=== PATIENT | female | born 1955 | race Caucasian/White ===

== ENCOUNTER 2018-04-07 12:13 | Inpatient (IN) | payer MEDICARE, MEDICAID, OTHER ==
[~2018-04-07] VITALS: Ht 157.5 cm; Wt 80.7 kg
[2018-04-07 12:50] LABS: BASOPHILS % (AUTO) 0.5 % (0.0-2.0); EOSINOPHILS % (AUTO) 3.3 % (0.0-6.0); HEMATOCRIT 25 % (33-45); HEMOGLOBIN 8.1 g/dL (11.5-14.8); LYMPHOCYTES # (AUTO) 1.4 /CMM (0.8-4.8); LYMPHOCYTES % (AUTO) 16.4 % (20.0-44.0); MEAN CORPUSCULAR HGB CONC 32 g/dl (31.0-36.0); MEAN CORPUSCULAR VOLUME 84 fL (82-100); MONOCYTES # (AUTO) 0.7 /CMM (0.1-1.30); MONOCYTES % (AUTO) 8.5 % (2.0-12.0); NEUTROPHILS # (AUTO) 6.2 /CMM (1.8-8.9); NEUTROPHILS % (AUTO) 71.3 % (43.0-81.0); PLATELET COUNT (AUTO) 130 /CMM (150-450); RED BLOOD CELL COUNT(AUTO) 2.97 MIL/uL (4.0-5.2); WHITE BLOOD COUNT (AUTO) 8.8 K/uL (4.3-11.0)
[2018-04-07 12:54] LABS: APPEARANCE,URINE Clear (CLEAR); BILIRUBIN,URINE Negative (NEGATIVE); BLOOD, URINE Trace-intact Ery/uL (NEGATIVE); COLOR,URINE Yellow (YELLOW); KETONES,URINE Negative (NEGATIVE); LEUKOCYTE ESTERASE ,URINE Negative (NEGATIVE); NITRITE, URINE Negative (NEGATIVE); PH,URINE 6.5 (5.0-8.0); PROTEIN,URINE Trace mg/dl (NEGATIVE); UGLUCOSE Negative (NEGATIVE); UROBILINOGEN,URINE 0.2 EU/dL (0.2)
[2018-04-07 13:00] LABS: BACTERIA,URINE Few /HPF (None Seen); SQUAMOUS EPITHELIAL CELL,UR Few /HPF (None Seen); WBC,URINE 0-2 /HPF (0-3)
[2018-04-07] MEDS ORDERED: LEVETIRACETAM (500MG) 1,000 MG in IV NS 0.9% 100 ML IV SCH (13:00)
[2018-04-07] MEDS ORDERED: ONDANSETRON HCL/PF 4 MG/2 ML VIAL IVP ONE (13:00)
[2018-04-07] MEDS ORDERED: IV NS 0.9% 1,000 ML BAG IV ONE (13:00)
[2018-04-07 13:01] LABS: CALCIUM, SERUM 8.3 mg/dL (8.5-10.1); CARBON DIOXIDE 18 mmol/L (21-32); CHLORIDE 107 mmol/L (98-107); CREATININE 1.7 mg/dL (0.6-1.3); GLUCOSE 188 mg/dL (74-106); POTASSIUM 3.2 mmol/L (3.5-5.1); SODIUM SERUM 141 mmol/L (136-145); UREA NITROGEN, BLOOD 14 mg/dL (7-18)
[2018-04-07] MEDS ORDERED: ONDANSETRON HCL/PF 4 MG/2 ML VIAL ONE (13:02)
--- NOTE | 2018-04-07 13:05 | NUR ---
OUT FOR HEAD CT
[2018-04-07 13:07] LABS: ALANINE AMINOTRANSFERASE 10 U/L (12-78); ALBUMIN 2.6 g/dL (3.4-5.0); ALKALINE PHOSPHATASE 129 U/L (46-116); ASPARTATE AMINOTRANSFERASE 15 U/L (15-37); BILIRUBIN,TOTAL 0.1 mg/dL (0.2-1.0); LIPASE 94 U/L (73-393); TOTAL PROTEIN, SERUM 7.8 g/dL (6.4-8.2)
--- NOTE | 2018-04-07 13:08 | NUR ---
CALLED NURSE SUP FOR DEVEN BED
--- NOTE | 2018-04-07 13:38 | NUR ---
PAGED ADMITTING HOSPITALIST VIA [facility]
--- NOTE | 2018-04-07 14:01 | NUR ---
DEVEN 104
[2018-04-07] MEDS ORDERED: Magnesium 1GM/D5W 100ML PREMIX 100 ML IV ONE (14:17)
[2018-04-07] MEDS: Magnesium 1GM/D5W 100ML PREMIX 100 ML IV SCH ×4 (14:23→17:00)
[2018-04-07] MEDS ORDERED: GABA-532 PO (14:25)
[2018-04-07] MEDS ORDERED: MAGN400O6 PO (14:25)
[2018-04-07] MEDS ORDERED: RISP1TAB27 PO (14:25)
[2018-04-07] MEDS ORDERED: ASPI-1169 PO (14:25)
[2018-04-07] MEDS ORDERED: SENN-168 PO (14:25)
[2018-04-07] MEDS ORDERED: HYDR-4384 PO (14:25)
[2018-04-07] MEDS ORDERED: ACET325T53 PO (14:25)
[2018-04-07] MEDS ORDERED: PANT40TA2 PO (14:25)
[2018-04-07] MEDS ORDERED: METO50TA16 PO (14:25)
[2018-04-07] MEDS ORDERED: ATOR80TA PO (14:25)
[2018-04-07] MEDS ORDERED: FERR325T23 PO (14:25)
[2018-04-07] MEDS ORDERED: INSU100V11 SQ (14:25)
[2018-04-07] MEDS ORDERED: QUET50TA PO (14:25)
[2018-04-07] MEDS ORDERED: CRANBERRY PO (14:25)
[2018-04-07] MEDS ORDERED: LEVO100T9 PO (14:25)
[2018-04-07] MEDS ORDERED: AMLO2.5T4 PO (14:25)
[2018-04-07] MEDS ORDERED: NA P133E RC (14:25)
[2018-04-07] MEDS ORDERED: BISA10SU61 RC (14:25)
[2018-04-07] MEDS ORDERED: CLOP75TA15 PO (14:25)
[2018-04-07] MEDS ORDERED: FOLI1TAB16 PO (14:25)
--- NOTE | 2018-04-07 14:48 | NUR ---
REPORT GIVEN TO JAMAICA LOPES FOR FELICITAS TELE 104-1
--- NOTE | 2018-04-07 15:30 | NUR ---
DEVEN RN NOTE RECEIVED PATIENT FROM ER WITH DX SEIZURE UNDER CARE CLARI RN EINSTEIN BROS BAGELS ASSISTANT MANAGER , PATIENT LETHARGIC BUT RESPONSE TO VERBAL AND TACITLY STIMULI, RT UPPER PICC LINE IN PLACE, UNABLE TO FLUSH I LUMEN , WITH العلي CATH TO GRAVITY WITH YELLOW COLOR URINE, PLACED ON PADDED SIDE RAILS FOR SEIZURE PRECAUTION, PLACED ON TELE MONITOR SR HR 75, VS TAKEN BED IN LOWEST AND LOCKED POSITION , WILL CONT TO MONITOR CLOSELY
[2018-04-07 16:00] VITALS: BP 116/78
[2018-04-07 16:27] VITALS: BP 116/78
[2018-04-07] MEDS ORDERED: IV NS 0.9% 1,000 ML IV PRN (17:25)
[2018-04-07] MEDS ORDERED: DEXTROSE 50%-WATER 50 ML DISP.SYRIN IV PRN (17:30)
[2018-04-07] MEDS ORDERED: TEMAZEPAM 15 MG CAPSULE PO PRN (17:30)
[2018-04-07] MEDS ORDERED: NA PHOS,M-B/NA PHOS,DI-BA 1 EA ENEMA RC PRN (17:30)
[2018-04-07] MEDS ORDERED: ONDANSETRON HCL/PF 4 MG/2 ML VIAL IVP PRN (17:30)
[2018-04-07] MEDS ORDERED: HYDROCODONE/APAP 5/325MG 1 EACH TABLET PO PRN (17:30)
--- NOTE | 2018-04-07 17:30 | NUR ---
DEVEN BERUMEN NNOTE BECOME VERY RESTLESS TRYING TO REMOVE ALL LINES AND GET OUT OFF BED , CALLED CLARI BERUMEN FISHERIES SPECIALIST OK TO PLACE SOFT RESTRAIN, CALLED TO FAMILY BUT WRONG NUMBER ,WILL F\U , SPOKE WITH CLARI TO PLACE ADMISSION ORDERS
[2018-04-07] MEDS: BLOOD SUGAR DIAGNOSTIC 1 EACH STRIP IN SCH ×2 (17:49→22:11)
[2018-04-07] MEDS: POTASSIUM CL. PREMIX PERIPHER. 50 ML IV SCH ×2 (17:52→18:52)
--- NOTE | 2018-04-07 17:55 | NUR ---
DEVEN RN NOTE PER REPORT MAG 1 GM WAS GIVEN IN ER
--- NOTE | 2018-04-07 18:27 | NUR ---
DEVEN RN NOTE REFUSED TO EAT ,WILL CONT TO ENCOURAGE TO EAT
[2018-04-07 20:00] VITALS: BP 149/84
[2018-04-07] MEDS: ACETAMINOPHEN 325 MG TABLET PO PRN (20:21)
--- NOTE | 2018-04-07 21:53 | NUR ---
CALL PHARMACIST GROUNDS SUPERVISOR , SPOKE TO YORDAN FROM PHARMACY, KEPPRA IV Q12HRS DOUBLE ORDER, PER PHARMACIST HE WILL D/C THE ORDER AT 0100 AM AND OK TO GIVE NOW DOSE DUE 2200.
--- NOTE | 2018-04-07 21:56 | NUR ---
SPOKE TO MARBELLA, SON, UPDATES ON MEDICAL CONDITION PROVIDED
[2018-04-07] MEDS ORDERED: LEVETIRACETAM (500MG) 500 MG in IV NS 0.9% 100 ML IV SCH (22:00)
[2018-04-07] MEDS: ATORVASTATIN 40 MG TABLET PO SCH (22:11)
[2018-04-07] MEDS: SENNOSIDES 8.6 MG TABLET PO SCH (22:11)
[2018-04-07 22:45] VITALS: BP 142/79
--- NOTE | 2018-04-07 22:45 | NUR ---
AT 22:36 PT NOTED WITH SEIZURE EPISODE 30 SECONDS LONG, MD AUGUSTIN MADE AWARE, NO PRN MEDS ORDERED , WITH NEW ORDER TO GIVE ATIVAN 2MG IVP Q4 HRS FOR SEIZURES> LONGER THEN 5 MIN. CHARGE NURSE MADE AWARE.
[2018-04-07] MEDS ORDERED: LORAZEPAM INJ 2 MG/ML VIAL IV PRN (23:00)
[2018-04-08] VITALS: BP 129/65
--- NOTE | 2018-04-08 02:45 | NUR ---
0245 DR ANDERSON WAS MADE AWARE OF PATIENT'S ANOTHER EPISODE OF LASTING LONGER THAN ONE MINUTE WITH ORDER TO GIVE ATIVAN 2MG IVP X ONE DOSE NOW. ORDER NOTED AND CARRIED OUT.
[2018-04-08] MEDS ORDERED: LORAZEPAM INJ 2 MG/ML VIAL IV ONE (03:00)
[2018-04-08 04:00] VITALS: BP 103/48
--- NOTE | 2018-04-08 04:00 | NUR ---
PT REMAINS CALM, BILATERAL WRIST RESTRAINTS RELEASED, WILL CONTINUE TO MONITOR
--- NOTE | 2018-04-08 04:10 | NUR ---
ON 04:08 AM PT WAS NOTED WITH 3RD EPISODE OF SEIZURE TONIGHT. SEIZURE LASTED 30 SECONDS. CHARGE NURSE AWARE.
--- NOTE | 2018-04-08 06:06 | NUR ---
PT REMAINS CALM, BILATERAL SOFT WRIST RESTRAINTS COMPLETE. WILL CONTINUE TO MONITOR
[2018-04-08 06:46] LABS: BASOPHILS # (AUTO) 0.1 /CMM (0.0-0.2); BASOPHILS % (AUTO) 0.9 % (0.0-2.0); EOSINOPHILS % (AUTO) 2.8 % (0.0-6.0); HEMATOCRIT 23 % (33-45); HEMOGLOBIN 7.6 g/dL (11.5-14.8); LYMPHOCYTES # (AUTO) 1.1 /CMM (0.8-4.8); LYMPHOCYTES % (AUTO) 13.2 % (20.0-44.0); MEAN CORPUSCULAR HGB CONC 33 g/dl (31.0-36.0); MEAN CORPUSCULAR VOLUME 82 fL (82-100); MONOCYTES # (AUTO) 0.9 /CMM (0.1-1.30); MONOCYTES % (AUTO) 10.1 % (2.0-12.0); NEUTROPHILS # (AUTO) 6.2 /CMM (1.8-8.9); PLATELET COUNT (AUTO) 132 /CMM (150-450); WHITE BLOOD COUNT (AUTO) 8.5 K/uL (4.3-11.0)
--- NOTE | 2018-04-08 07:00 | NUR ---
RN DEVEN OPENING NOTES RECEIVED BEDSIDE REPORT PATIENT IN BED LETHARGIC AROUSED BY STIMULI NO SIGNS OR SYMPTOMS OF RESPIRATORY DISTRESS ON 4 LTRS NASAL CANNULA SATURATING 100% NO SIGNS OR SYMPTOMS OF ACUTE PAIN . SEIZURE PRECAUTIONS IN PLACE. العلي CATH DRAINING CLEAR YELLOW URINE (L) UA PICC RUNNING NS @ 75ML/HR. SUTURES TO (R) FINGERS CLEAN WITH NO S/S OF WARMTH OR REDNESS NOTED. ALL NEEDS MET CALL LIGHT WITHIN REACH
[2018-04-08 07:08] LABS: CALCIUM, SERUM 8.1 mg/dL (8.5-10.1); CREATININE 1.4 mg/dL (0.6-1.3); MAGNESIUM 1.4 mg/dL (1.8-2.4); PHOSPHORUS 2.3 mg/dL (2.5-4.9)
[2018-04-08 07:12] LABS: POTASSIUM 2.5 mmol/L (3.5-5.1)
[2018-04-08] MEDS ORDERED: PANTOPRAZOLE 40 MG TABLET.DR PO SCH (07:30)
[2018-04-08] MEDS ORDERED: Magnesium 1GM/D5W 100ML PREMIX PIGGYBACK IV ONE (07:30)
[2018-04-08] MEDS: LEVOTHYROXINE SODIUM 100 MCG TABLET PO SCH (07:30)
--- NOTE | 2018-04-08 07:33 | NUR ---
SPOKE TO CLARI GUTIERREZ REGARDING MORNING LAB RESULTS, MAG LEVEL, NA LEVEL , PHOS LEVEL, POTASSIUM LEVEL AND UPDATED ABOUT SEIZURE ACTIVITIES DURING THE NIGHT. CLARI WITH NEW ORDERS MADE AND CARRIED OUT.
--- NOTE | 2018-04-08 07:43 | NUR ---
RN DEVEN NOTES NEW ORDERS OBTAINED IN REGARDS TO POTASSIUM OF 2.5 AND SEIZURE ACTIVITY THROUGHOUT THE NIGHT
[2018-04-08 08:00] VITALS: BP_SYST 100; BP_SYST 153; BP_DIAS 74
[2018-04-08] MEDS ORDERED: LEVETIRACETAM (500MG) 1,000 MG in IV NS 0.9% 100 ML IV SCH (08:00)
[2018-04-08] MEDS: IV D5/0.45 NACL 1,000 ML IV PRN (08:06)
[2018-04-08] MEDS: BLOOD SUGAR DIAGNOSTIC 1 EACH STRIP IN SCH ×4 (08:20→22:25)
[2018-04-08] MEDS: POTASSIUM CL. PREMIX PERIPHER. 50 ML IV SCH ×8 (08:21→15:58)
[2018-04-08] MEDS: Magnesium 1GM/D5W 100ML PREMIX 100 ML IV SCH ×4 (08:21→11:28)
[2018-04-08] MEDS: METOPROLOL TARTRATE 50 MG TABLET PO SCH ×3 (09:00→17:00)
[2018-04-08] MEDS: AMLODIPINE BESYLATE 2.5 MG TABLET PO SCH ×2 (09:00→17:00)
[2018-04-08] MEDS: ASPIRIN 81 MG TAB.CHEW PO SCH (09:00)
[2018-04-08] MEDS: QUETIAPINE FUMARATE 25 MG TABLET PO SCH ×2 (09:00→17:00)
[2018-04-08] MEDS: risperiDONE 1 MG TABLET PO SCH (09:00)
[2018-04-08] MEDS: FOLIC ACID 1 MG TABLET PO SCH (09:00)
[2018-04-08] MEDS: CLOPIDOGREL BISULFATE 75 MG TABLET PO SCH (09:00)
[2018-04-08] MEDS: GABAPENTIN 100 MG CAPSULE PO SCH ×3 (09:00→17:00)
[2018-04-08] MEDS: FERROUS SULFATE (325 MG) 325 MG/TAB TABLET PO SCH ×2 (09:00→17:00)
[2018-04-08] MEDS: Z GUARD REMEDY 2 OZ OINT TP SCH (09:10)
[2018-04-08] MEDS: PANTOPRAZOLE 40 MG VIAL IV SCH (09:12)
--- NOTE | 2018-04-08 09:30 | NUR ---
RN DEVEN NOTES ATTEMPTED TO START 2ND IV LINE D/T ONE PORT ON PICC CLOGGED. WILL NOTIFY MD IF ATEPLASE CAN BE ORDERED
[2018-04-08] MEDS: POTASSIUM PHOSPHATE MM 7.5 MMOL in IV D5W 100 ML IV SCH ×2 (10:35→13:26)
[2018-04-08 12:00] VITALS: BP 119/61
[2018-04-08] MEDS ORDERED: ALTEPLASE CATHFLO 2 MG/VIAL XX ONE (12:30)
--- NOTE | 2018-04-08 12:30 | NUR ---
RN DEVEN NOTES ALTEPLASE ORDERED AND ADMINISTER TO PICC
--- NOTE | 2018-04-08 13:30 | NUR ---
RN DEVEN NOTES PICC LINE FLUSHES WITH NO RESISTANCE
[2018-04-08 16:00] VITALS: BP 135/72
--- NOTE | 2018-04-08 18:45 | NUR ---
RN DEVEN NOTES PATIENT LETHARGIC THROUGHOUT THE DAY.A/O X1 CONFUSED. ABLE TO AROUSE WITH TOUCH. NO SIGNS OR SYMPTOMS OF RESPIRATORY DISTRESS ON 2 LTRS VIA NASAL CANNULA. NO COMPLAINTS OF ACUTE PAIN. VERY AGGRESSIVE WHEN CLEANING KICKING AND YELLING CURSIVE LANGUAGE. FALLS BACK TO SLEEP SHOUTING AT TIMES FOR ENOCH. TREATMENT TO (R) HAND/FINGERS IODINE AND KERLIX WRAP. NPO TILL COMPLETELY AWAKE AND ALERT. SEIZURE PRECAUTIONS IN PLACE BED IN LOW POSITION CALL LIGHT WITHIN REACH WILL ENDORSE TO NOC
[2018-04-08 20:00] VITALS: BP 149/54
[2018-04-08] MEDS ORDERED: OXCARBAZEPINE 150 MG TABLET PO SCH (21:00)
[2018-04-08] MEDS: SENNOSIDES 8.6 MG TABLET PO SCH (21:22)
[2018-04-08] MEDS: ATORVASTATIN 40 MG TABLET PO SCH (21:22)
--- NOTE | 2018-04-08 21:23 | NUR ---
PT COMBATIVE, KICKING, YELLING, REFUSING PO MEDICATIONS, UNABLE TO GIVE PO MEDS FOR SEIZURE, PT STATED SHE DOESNT NEED IT. NEURO MD MCINTYRE PAGED AND LEFT VOICEMAIL. CHARGE NURSE AWARE.
--- NOTE | 2018-04-08 21:40 | NUR ---
MD MCINTYRE CALLED BACK , EXPLAINED I WAS UNABLE TO GIVE PO ANTISEIZURE MEDICATIONS, REFUSED TO GIVE ORDERS, STATED CALLED PRIMARY CARE PHYSICIAN TO GET ORDERS. CHARGE NURSE AWARE.
--- NOTE | 2018-04-08 21:45 | NUR ---
SPOKE TO MD JODIE AUGUSTIN, AWARE OF PT'S REFUSING PO MEDICATIONS, WITH ORDER TO CHANGE ANTISEIZURE MEDICATION BACK TO PREVIOUS KEPPRA IV ORDER. CHARGE NURSE AWARE.
[2018-04-08] MEDS ORDERED: LEVETIRACETAM (500MG) 500 MG/5 ML VIAL IV ONE (22:21)
[2018-04-08] MEDS: LEVETIRACETAM (500MG) 1,000 MG in IV NS 0.9% 100 ML IV SCH (22:44)
[2018-04-09] VITALS (8 sets, daily range): BP systolic 121–148; BP diastolic 65–80
[2018-04-09] MEDS: LORAZEPAM INJ 2 MG/ML VIAL IV PRN ×3 (02:54→08:40)
--- NOTE | 2018-04-09 03:00 | NUR ---
PT NOTED @ 0250 WITH EPISODE OF SEIZURE 1 MINUTE LONG , ATIVAN 1MG IVP ADMIT ORDERED.
[2018-04-09] MEDS: IV D5/0.45 NACL 1,000 ML IV PRN ×2 (03:11→20:11)
--- NOTE | 2018-04-09 04:07 | NUR ---
PT NOTED WITH ANOTHER SEIZURE EPISODE 45 SECONDS LONG, ATIVAN ADMIN ORDERED.
[2018-04-09 06:22] LABS: BASOPHILS # (AUTO) 0.1 /CMM (0.0-0.2); BASOPHILS % (AUTO) 0.9 % (0.0-2.0); EOSINOPHILS % (AUTO) 4.3 % (0.0-6.0); HEMATOCRIT 24 % (33-45); LYMPHOCYTES # (AUTO) 1.4 /CMM (0.8-4.8); LYMPHOCYTES % (AUTO) 11.6 % (20.0-44.0); MEAN CORPUSCULAR HGB CONC 33 g/dl (31.0-36.0); MEAN CORPUSCULAR VOLUME 81 fL (82-100); MONOCYTES # (AUTO) 0.9 /CMM (0.1-1.30); MONOCYTES % (AUTO) 7.2 % (2.0-12.0); PLATELET COUNT (AUTO) 175 /CMM (150-450); RED BLOOD CELL COUNT(AUTO) 2.97 MIL/uL (4.0-5.2); WHITE BLOOD COUNT (AUTO) 11.9 K/uL (4.3-11.0)
[2018-04-09 06:29] LABS: CALCIUM, SERUM 7.9 mg/dL (8.5-10.1); CREATININE 1.2 mg/dL (0.6-1.3); PHOSPHORUS 2.2 mg/dL (2.5-4.9)
[2018-04-09 06:32] LABS: POTASSIUM 2.6 mmol/L (3.5-5.1)
--- NOTE | 2018-04-09 07:00 | NUR ---
RN DEVEN OPENING NOTES RECEIVED BEDSIDE REPORT PATIENT IN BED LETHARGIC AROUSED BY STIMULI NO SIGNS OR SYMPTOMS OF RESPIRATORY DISTRESS ON 4 LTRS NASAL CANNULA SATURATING 100% NO SIGNS OR SYMPTOMS OF ACUTE PAIN .SINUS RHYTHM 82 ON MONITOR SEIZURE PRECAUTIONS IN PLACE. العلي CATH DRAINING CLEAR YELLOW URINE (L) UA PICC RUNNING D51/2 NS@100ML/HR SUTURES TO (R) FINGERS CLEAN WITH NO S/S OF WARMTH OR REDNESS NOTED.SAFETY PRECAUTIONS IN PLACE BED IN LOW POSITION CALL LIGHT WITHIN REACH
--- NOTE | 2018-04-09 07:00 | NUR ---
RN DEVEN NOTES PATIENT LETHARGIC THROUGHOUT THE DAY.A/O X1 CONFUSED. ABLE TO AROUSE WITH TOUCH.MORE AGGRESSIVE AT END OF SHIFT.HALLUCINATIONS OF HER SON AND EATING AT [employer] NO SIGNS OR SYMPTOMS OF RESPIRATORY DISTRESS ON 4LTRS VIA NASAL CANNULA. NO COMPLAINTS OF ACUTE PAIN. VERY AGGRESSIVE WHEN CLEANING KICKING AND YELLING CURSIVE LANGUAGE. FALLS BACK TO SLEEP SHOUTING AT TIMES FOR ENOCH. TREATMENT TO (R) HAND/FINGERS IODINE AND KERLIX WRAP.ORDER FOR NG TUBE IF PATIENT UNABLE TO WAKE FOR MEDICATION.ALL EVENING MEDS GIVEN 1X EPISODE OF SEIZURE PRIMARY AWARE ENDORSED ALL ORDERS TO NOC . SEIZURE PRECAUTIONS IN PLACE BED IN LOW POSITION CALL LIGHT WITHIN REACH WILL ENDORSE TO NOC
[2018-04-09] MEDS: BLOOD SUGAR DIAGNOSTIC 1 EACH STRIP IN SCH ×4 (08:17→21:19)
--- NOTE | 2018-04-09 08:40 | NUR ---
RN DEVEN NOTES PATIENT EXPERIENCED SEIZURE UNRESPONSIVE EYES DEVIATED UPWARD HR 140-150'S ATIVAN GIVEN ORDERED HR RESUMED TO THE 70'S
[2018-04-09] MEDS: LEVOTHYROXINE SODIUM 100 MCG TABLET PO SCH (08:51)
[2018-04-09] MEDS: METOPROLOL TARTRATE 50 MG TABLET PO SCH ×3 (08:52→16:54)
[2018-04-09] MEDS: FERROUS SULFATE (325 MG) 325 MG/TAB TABLET PO SCH ×2 (08:52→16:54)
[2018-04-09] MEDS: ASPIRIN 81 MG TAB.CHEW PO SCH (08:52)
[2018-04-09] MEDS: FOLIC ACID 1 MG TABLET PO SCH (08:52)
[2018-04-09] MEDS: GABAPENTIN 100 MG CAPSULE PO SCH ×3 (08:53→16:54)
[2018-04-09] MEDS: CLOPIDOGREL BISULFATE 75 MG TABLET PO SCH (08:53)
[2018-04-09] MEDS: risperiDONE 1 MG TABLET PO SCH (08:53)
[2018-04-09] MEDS: AMLODIPINE BESYLATE 2.5 MG TABLET PO SCH ×2 (08:53→17:13)
[2018-04-09] MEDS: QUETIAPINE FUMARATE 25 MG TABLET PO SCH ×2 (08:54→16:54)
[2018-04-09] MEDS: PANTOPRAZOLE 40 MG VIAL IV SCH (09:21)
[2018-04-09] MEDS: POTASSIUM CL. PREMIX PERIPHER. 50 ML IV SCH ×8 (09:21→16:09)
[2018-04-09] MEDS: Z GUARD REMEDY 2 OZ OINT TP SCH (09:22)
[2018-04-09] MEDS: POTASSIUM PHOSPHATE MM 7.5 MMOL in IV D5W 100 ML IV SCH ×2 (10:15→13:16)
[2018-04-09] MEDS: LEVETIRACETAM (500MG) 1,000 MG in IV NS 0.9% 100 ML IV SCH (10:21)
[2018-04-09 12:49] LABS: CREATININE, URINE 51.3 MG/DL (30.0-125.0); URINE TOTAL PROTEIN 29.3 mg/dL (0-11.9)
[2018-04-09 13:05] LABS: APPEARANCE,URINE CLEAR (CLEAR); BILIRUBIN,URINE NEGATIVE (NEGATIVE); BLOOD, URINE TRACE-INTA Ery/uL (NEGATIVE); COLOR,URINE YELLOW (YELLOW); KETONES,URINE NEGATIVE (NEGATIVE); LEUKOCYTE ESTERASE ,URINE NEGATIVE (NEGATIVE); NITRITE, URINE NEGATIVE (NEGATIVE); PROTEIN,URINE NEGATIVE (NEGATIVE); UGLUCOSE NEGATIVE (NEGATIVE); UROBILINOGEN,URINE 0.2 EU/dL (0.2)
[2018-04-09 13:24] LABS: BACTERIA,URINE Few /HPF (None Seen); SQUAMOUS EPITHELIAL CELL,UR 0-2 /HPF (None Seen)
[2018-04-09 13:51] LABS: EOSINOPHIL,URINE None Seen
[2018-04-09] MEDS ORDERED: PIPERACILLIN /TAZOBACTAM 3.375 G in IV D5W 50 ML IV ONE (14:30)
[2018-04-09] MEDS: OXCARBAZEPINE 150 MG TABLET PO SCH (16:54)
--- NOTE | 2018-04-09 20:00 | NUR ---
RN INITIAL NOTES RECEIVED PT IN BEDSIDE, NO SIGNS OR SYMPTOMS OF RESPIRATORY DISTRESS,ON 4 L NASAL CANNULA SATURATING 100% NO SIGNS OR SYMPTOMS OF ACUTE PAIN. SINUS RHYTHM 82 ON MONITOR SEIZURE PRECAUTIONS IN PLACE. العلي CATH DRAINING CLEAR YELLOW URINE, (L) UA PICC RUNNING D51/2 NS@100ML/HR SUTURES TO (R) FINGERS CLEAN WITH NO S/S OF WARMTH OR REDNESS NOTED.SAFETY PRECAUTIONS IN PLACE BED IN LOW LOCKED POSITION, CALL LIGHT WITHIN REACH.
[2018-04-09] MEDS: PIPERACILLIN /TAZOBACTAM 3.375 G in IV D5W 100 ML IV SCH (20:02)
[2018-04-09] MEDS: ATORVASTATIN 40 MG TABLET PO SCH (21:18)
[2018-04-09] MEDS: SENNOSIDES 8.6 MG TABLET PO SCH (21:18)
[2018-04-10] VITALS: BP 143/83
[2018-04-10] MEDS: PIPERACILLIN /TAZOBACTAM 3.375 G in IV D5W 100 ML IV SCH (03:38)
[2018-04-10 04:00] VITALS: BP 139/83
[2018-04-10 06:25] LABS: BASOPHILS # (AUTO) 0.1 /CMM (0.0-0.2); BASOPHILS % (AUTO) 0.5 % (0.0-2.0); EOSINOPHILS % (AUTO) 5.7 % (0.0-6.0); HEMATOCRIT 24 % (33-45); HEMOGLOBIN 8.1 g/dL (11.5-14.8); LYMPHOCYTES % (AUTO) 18.6 % (20.0-44.0); MEAN CORPUSCULAR HGB CONC 34 g/dl (31.0-36.0); MEAN CORPUSCULAR VOLUME 82 fL (82-100); MONOCYTES # (AUTO) 0.9 /CMM (0.1-1.30); MONOCYTES % (AUTO) 8.6 % (2.0-12.0); NEUTROPHILS # (AUTO) 7.3 /CMM (1.8-8.9); NEUTROPHILS % (AUTO) 66.6 % (43.0-81.0); PLATELET COUNT (AUTO) 206 /CMM (150-450); RED BLOOD CELL COUNT(AUTO) 2.97 MIL/uL (4.0-5.2); WHITE BLOOD COUNT (AUTO) 10.9 K/uL (4.3-11.0)
[2018-04-10 06:31] LABS: ALBUMIN 2.4 g/dL (3.4-5.0); BILIRUBIN,TOTAL 0.4 mg/dL (0.2-1.0); CREATININE 1.2 mg/dL (0.6-1.3); MAGNESIUM 1.4 mg/dL (1.8-2.4); POTASSIUM 3.1 mmol/L (3.5-5.1); TOTAL PROTEIN, SERUM 7.5 g/dL (6.4-8.2)
--- NOTE | 2018-04-10 06:36 | NUR ---
RN CLOSING NOTES NO CHANGE IN PTS CONDITION OVER SHIFT, PT REMAINS STABLE. WILL ENDORSE TO AM RN
[2018-04-10 06:42] LABS: THYROID STIMULATING HORMONE 1.223 uIU/mL (0.358-3.74)
[2018-04-10 07:02] LABS: OCCULT BLOOD STOOL NEGATIVE (NEGATIVE)
--- NOTE | 2018-04-10 07:30 | NUR ---
RN NOTES RECEIVED PT IN BED ASLEEP, NO S/S OF RESPIRATORY DISTRESS NOTED,WITH NASAL CANNULA WITH 4LPM OF OXYGEN, SATURATING 100%, NO INDICATION OF PAIN OF ACUTE PAIN. SINUS RHYTHM ON THE MONITOR HR AT 85. IV LINE ON THE VITALY WITH INFUSING D5NS AT 100CC/HR, العلي CATH DRAINING WELL TO CLEAR YELLOW URINE, SUTURES TO (R) FINGERS CLEAN WITH NO S/S OF INFECTION NOTED. PATIENT ON SEIZURE MONITORING. SEIZURE PRECAUTIONS IN PLACE. SAFETY MEASURES OBSERVED AND KEPT IN PLACE. BED IN LOW LOCKED POSITION, CALL LIGHT WITHIN REACH, WILL CONTINUE TO MONITOR PATIENT
--- NOTE | 2018-04-10 07:36 | NUR ---
RN AM SHIFT NOTE RECEIVED PATIENT FROM SPRINKLER FITTER, ASLEEP, VITALS REPORTED WNL, MONITOR FOR SEIZURE, NPO, SEIZURE PRECAUTIONS IN PLACE.
[2018-04-10 08:00] VITALS: BP 117/74
--- NOTE | 2018-04-10 08:00 | NUR ---
RN NOTE BLOOD SUGAR CHECKED PATIENTS CLOOD SUGAR AT 07:45 87MMHG NO COVERAGE REQUIRED.
[2018-04-10] MEDS: FOLIC ACID 1 MG TABLET PO SCH (08:20)
[2018-04-10] MEDS: CLOPIDOGREL BISULFATE 75 MG TABLET PO SCH (08:20)
[2018-04-10] MEDS: FERROUS SULFATE (325 MG) 325 MG/TAB TABLET PO SCH ×2 (08:21→16:29)
[2018-04-10] MEDS: ASPIRIN 81 MG TAB.CHEW PO SCH (08:21)
[2018-04-10] MEDS: GABAPENTIN 100 MG CAPSULE PO SCH ×3 (08:21→16:29)
[2018-04-10] MEDS: risperiDONE 1 MG TABLET PO SCH (08:21)
[2018-04-10] MEDS: ACETAMINOPHEN 325 MG TABLET PO PRN (08:21)
[2018-04-10] MEDS: METOPROLOL TARTRATE 50 MG TABLET PO SCH ×3 (08:22→16:28)
[2018-04-10] MEDS: QUETIAPINE FUMARATE 25 MG TABLET PO SCH ×2 (08:22→16:28)
[2018-04-10] MEDS: PANTOPRAZOLE 40 MG VIAL IV SCH (08:22)
[2018-04-10] MEDS: OXCARBAZEPINE 150 MG TABLET PO SCH ×2 (08:23→16:29)
[2018-04-10] MEDS: LEVOTHYROXINE SODIUM 100 MCG TABLET PO SCH (08:23)
[2018-04-10] MEDS: BLOOD SUGAR DIAGNOSTIC 1 EACH STRIP IN SCH ×4 (08:38→21:35)
[2018-04-10] MEDS: AMLODIPINE BESYLATE 2.5 MG TABLET PO SCH ×2 (08:39→16:47)
[2018-04-10] MEDS: Z GUARD REMEDY 2 OZ OINT TP SCH (08:40)
[2018-04-10] MEDS: Magnesium 1GM/D5W 100ML PREMIX 100 ML IV SCH ×4 (11:16→15:27)
[2018-04-10] MEDS: POTASSIUM CL. PREMIX PERIPHER. 50 ML IV SCH ×4 (11:23→15:48)
[2018-04-10 12:00] VITALS: BP 127/67
[2018-04-10] MEDS: INSULIN REGULAR, HUMAN 100 UNIT/ML 3 ML VIAL SQ PRN (12:08)
[2018-04-10 16:00] VITALS: BP 105/62
--- NOTE | 2018-04-10 19:12 | NUR ---
RN CLOSING NOTE PATIENT ALERT TO PERSON, VITALS WNL, D/C NASAL CANNULA, GAVE POTASSIUM IV AND MAGNESIUM IV PER MD ORDERS DUE TO LOW LAB VALUES, NO SEIZURE ON THIS SHIFT, SEIZURE PRECAUTIONS IN PLACE, D/C QUALITY ENGINEERING MANAGER, ACCUCHECK DONE CURRENT 122 AT 1600. DRESSING CHANGED RIGHT HAND, CLEANED WITH BETADINE AND WRAPED WITH KRILEX, NO REPORTS OF PAIN AT THIS TIME. العلي PATENT PATINET CLEAN AND DRY ,ENDORSED TO PM NURSE
[2018-04-10 20:00] VITALS: BP 158/93
--- NOTE | 2018-04-10 20:00 | NUR ---
RN INITIAL NOTES RECEIVED PT IN BED AWAKE, NO S/S OF RESPIRATORY DISTRESS NOTED,WITH NASAL CANNULA WITH 4LPM OF OXYGEN, SATURATING 100%, IV LINE ON THE VITALY WITH INFUSING D5NS AT 100CC/HR, العلي CATH DRAINING WELL TO CLEAR YELLOW URINE, SUTURES TO (R) FINGERS CLEAN WITH NO S/S OF INFECTION NOTED. PATIENT ON SEIZURE MONITORING. SEIZURE PRECAUTIONS IN PLACE. ALL SAFETY MEASURES OBSERVED AND KEPT IN PLACE. BED IN LOW LOCKED POSITION, CALL LIGHT WITHIN REACH, WILL CONTINUE TO MONITOR PATIENT.
[2018-04-10] MEDS: ATORVASTATIN 40 MG TABLET PO SCH (21:33)
[2018-04-10] MEDS: SENNOSIDES 8.6 MG TABLET PO SCH (21:34)
[2018-04-10] MEDS: IV D5/0.45 NACL 1,000 ML IV PRN (21:41)
[2018-04-11 04:00] VITALS: BP 140/97
--- NOTE | 2018-04-11 06:28 | NUR ---
RN CLOSING NOTES NO CHANGE IN PTS CONDITION OVERNIGHT. WILL ENDORSE TO AM RN
[2018-04-11 06:52] LABS: CALCIUM, SERUM 8.3 mg/dL (8.5-10.1); CREATININE 1.1 mg/dL (0.6-1.3); MAGNESIUM 1.8 mg/dL (1.8-2.4); POTASSIUM 3.3 mmol/L (3.5-5.1)
--- NOTE | 2018-04-11 07:10 | NUR ---
MS RN OPENING NOTES RECEIVED PT LYING ON BED.ALERT/ORIENTED X1-2 WITH CONFUSED.ON ROOM AIR,TOLERATING WELL.NO SOB AND ACUTE DISTRESS NOTED.NO SEIZURE NOTED.PICC LINE IS ON LEFT UA,SITE IS CLEAN DRY AND INTACT.NO INFILTRATION NOTED.SAFETY IS MAINTAINED AT ALL TIMES.BED IS IN LOW POSITION AND LOCKED.CALL LIGHT IS WITHIN REACH.WILL CONTINUE TO MONITOR THE PT CLOSELY AND MONITOR FOR SEIZURE SYMPTOMS.
[2018-04-11 08:00] VITALS: BP 171/82
[2018-04-11] MEDS: BLOOD SUGAR DIAGNOSTIC 1 EACH STRIP IN SCH ×2 (08:10→12:10)
[2018-04-11] MEDS: FERROUS SULFATE (325 MG) 325 MG/TAB TABLET PO SCH (08:43)
[2018-04-11] MEDS: LEVOTHYROXINE SODIUM 100 MCG TABLET PO SCH (08:43)
[2018-04-11] MEDS: risperiDONE 1 MG TABLET PO SCH (08:43)
[2018-04-11] MEDS: ASPIRIN 81 MG TAB.CHEW PO SCH (08:43)
[2018-04-11] MEDS: FOLIC ACID 1 MG TABLET PO SCH (08:43)
[2018-04-11] MEDS: CLOPIDOGREL BISULFATE 75 MG TABLET PO SCH (08:43)
[2018-04-11] MEDS: GABAPENTIN 100 MG CAPSULE PO SCH ×2 (08:43→12:11)
[2018-04-11] MEDS: AMLODIPINE BESYLATE 2.5 MG TABLET PO SCH (08:44)
[2018-04-11] MEDS: OXCARBAZEPINE 150 MG TABLET PO SCH (08:44)
[2018-04-11] MEDS: QUETIAPINE FUMARATE 25 MG TABLET PO SCH (08:44)
[2018-04-11] MEDS: METOPROLOL TARTRATE 50 MG TABLET PO SCH ×2 (08:44→12:15)
[2018-04-11] MEDS: PANTOPRAZOLE 40 MG VIAL IV SCH (08:44)
[2018-04-11] MEDS: Z GUARD REMEDY 2 OZ OINT TP SCH (08:45)
[2018-04-11] MEDS: IV D5/0.45 NACL 1,000 ML IV PRN (08:48)
[2018-04-11] MEDS ORDERED: POTASSIUM CHLORIDE 20 MEQ TAB.PRT.SR PO SCH (11:00)
[2018-04-11 12:15] VITALS: BP 146/84
[2018-04-11] MEDS: INSULIN REGULAR, HUMAN 100 UNIT/ML 3 ML VIAL SQ PRN (12:19)
[2018-04-11] MEDS: LORAZEPAM INJ 2 MG/ML VIAL IV PRN (12:22)
--- NOTE | 2018-04-11 13:25 | NUR ---
MS WET WASHER MACHINE NOTES PT IS READY TO DISCHARGE TO [facility].ALERT/ORIENTED X1 WITH CONFUSION.ALL THE DISCHARGE MEDICATION LIST AND TREATMENTS WELL EXPLAINED TO STAFF IN SNF AND AMBULANCE PERSONNEL.PICC LINE ON LEFT UA IS REMOVED.NO BLEEDING NOTED.PRESSURE DRESSING HAS DONE.SKIN ASSESSMENT IS DONE AND HAS TAKEN THE PICTURE.PT IS CLEAN AND DRY.FC IS IN PLACE.VITAL SIGNS ARE CHECKED AND RECORDED AND ALL THE MEDICATIONS ARE GIVEN.NO SEIZURE NOTED .REPORT GIVEN TO JAMAICA FRENCH IN SNF.NO COMPLICATIONS NOTED.
[2018-04-13 07:07] LABS: *SPE A/G RATIO 0.7 (0.7-1.7); *SPE ALBUMIN 2.9 g/dL (2.9-4.4); *SPE ALPHA-1-GLOBULIN 0.3 g/dL (0.0-0.4); *SPE ALPHA-2-GLOBULIN 0.7 g/dL (0.4-1.0); *SPE BETA GLOBULIN 0.7 g/dL (0.7-1.3); *SPE GLOBULIN, TOTAL 3.9 g/dL (2.2-3.9); *SPE M-SPIKE 1.9 g/dL (Not Observed); *SPEGAMMA GLOBULIN 2.2 g/dL (0.4-1.8)
== END 2018-04-11 13:25 | DRG 100 ==
LOC: ER 12:15 → EDBD 14:13 → TELE-TD 14:13 → MEDSG1 04-10 10:28
PROVIDERS: ADMIT Nurse Practitioner Acute Care; ATTEND Nurse Practitioner Acute Care
PROC: 02HV33Z Insertion of Infusion Device into Superior Vena Cava, Percutaneous Approach (ICD-10-PCS; principal; 2018-04-08)
PROC: B548ZZA Ultrasonography of Superior Vena Cava, Guidance (ICD-10-PCS; 2018-04-08)
DX: G40.909 Epilepsy, unspecified, not intractable, without status epilepticus (principal); N17.0 Acute kidney failure with tubular necrosis; G93.41 Metabolic encephalopathy; E44.0 Moderate protein-calorie malnutrition; E78.5 Hyperlipidemia, unspecified; E11.9 Type 2 diabetes mellitus without complications; E87.6 Hypokalemia; Z91.19 Patient's noncompliance with other medical treatment and regimen; Z86.73 Personal history of transient ischemic attack (TIA), and cerebral infarction without residual deficits; M62.49 Contracture of muscle, multiple sites; K21.9 Gastro-esophageal reflux disease without esophagitis; F32.9 Major depressive disorder, single episode, unspecified; E11.22 Type 2 diabetes mellitus with diabetic chronic kidney disease; Z89.021 Acquired absence of right finger(s); F29 Unspecified psychosis not due to a substance or known physiological condition; E03.9 Hypothyroidism, unspecified; D64.9 Anemia, unspecified; Z79.4 Long term (current) use of insulin; Z79.82 Long term (current) use of aspirin; Z79.899 Other long term (current) drug therapy; L30.4 Erythema intertrigo; E83.42 Hypomagnesemia; E83.39 Other disorders of phosphorus metabolism; D50.9 Iron deficiency anemia, unspecified; I12.9 Hypertensive chronic kidney disease with stage 1 through stage 4 chronic kidney disease, or unspecified chronic kidney disease; N18.9 Chronic kidney disease, unspecified
CPT/HCPCS: 36415; 70450-TC; 71045-TC; 80048-TC; 80053-TC; 80061-TC; 80076-TC; 81000-TC; 82272-TC; 82436-TC; 82570-TC; 82728-TC; 82784; 82962-TC; 83540-TC; 83690-TC; 83735-TC; 83935-TC; 84100-TC; 84133-TC; 84155; 84155-TC; 84165; 84300-TC; 84443-TC; 84484-TC; 85025-TC; 86334; 87081-TC; 87086-TC; A6402; C9113; G0378; J1815; J1953; J2060; J2405; J2543; J2997; J3475; J3480; J3490; J7030; J7040; J7042; J7060